=== PATIENT | male | born 1995 | race Caucasian/White ===

== ENCOUNTER 2018-08-04 19:58 | Emergency (ER) | payer OTHER, SELFPAY ==
[2018-08-04 20:01] VITALS: BP 133/73; PULSE 99; RESP 15; TEMP 36.4; O2SAT 98; BMI 19.0
--- NOTE | 2018-08-04 20:49 | ED.DCSUM_ITS ---
- ER Visit Summary Date of Service: 08/04/18 Chief Complaint: Forehead laceration History of Present Illness: The patient is a 22 M presenting with forehead laceration. Patient states he was at work. He was reaching down and hit his head on a pole on a machine. He did not lose consciousness. He fell backwards. He had no amnesia to the event. No vomiting. Tetanus is up-to-date. No other injuries. Physical Examination: Vitals are stable. Patient is afebrile. Alert no acute d istress. HEENT exam 1.0 cm laceration mid forehead Neck is nontender Lungs are clear and equal bilaterally. Heart is regular rate and rhythm. Extremities are unremarkable. Skin is warm and dry. No focal neurologic deficit. Remainder of exam is unremarkable. Emergency Department Course and Treatment: LET was applied. Laceration was irrigated with saline. Anesthetized with lidocaine. 3, 5-0 simple sutures were placed. Patient tolerated this well. Advised wound care instructions. Advised to follow-up with corporate care. Advised to return to ED if worsening complaints. Disposition: Discharge home Impression: Forehead laceration, laceration repair This note was generated with [employer] dictation software. It may contain incorrect words, spelling, and punctuation that were not noted in review of the chart prior to signing ED Disposition - Plan for ED Patient: Instructions: ED Laceration Facial Sutr Tape Referrals: ,[facility] [GROUP OF PHYSICIANS] - Garry Chow MD [Primary Care Provider] -
--- NOTE | 2018-08-04 20:49 | ED.DEP ---
ED Disposition - Plan for ED Patient: Instructions: ED Laceration Facial Sutr Tape [facility]: [facility] [[facility] OF [facility]YSICIANS] -
--- NOTE | 2018-08-04 20:50 | DCINST.ED_ITS ---
ED Disposition - Plan for ED Patient: Instructions: ED Laceration Facial Sutr Tape [facility]: [facility] [[facility] Care Provider[facility] [GROUP OF PHYSICIANS] -
[2018-08-04] MEDS: Lidocaine/Epi/Tetracaine 50 ML 1 APPLIC TOPICAL (21:00)
[2018-08-04 22:49] VITALS: PULSE 82; RESP 14; O2SAT 99
== END 2018-08-04 22:51 | disposition home or self-care (01) ==
PROVIDERS: Emergency Provider Emergency Medicine; Family Provider Pediatrics; PCP Pediatrics
DX: S01.81XA Laceration without foreign body of other part of head, initial encounter (principal); W22.8XXA Striking against or struck by other objects, initial encounter; Y93.9 Activity, unspecified; Y92.9 Unspecified place or not applicable; Z72.0 Tobacco use
CPT/HCPCS: 12011; 99284